=== PATIENT | female | born 1980 | race African-American/Black ===

== ENCOUNTER 2016-10-29 21:10 | Emergency (ER) | payer OTHER, MEDICAID ==
[2016-10-30] MEDS ORDERED: HYDROCODONE/ACETAMINOPHEN 5-325 MG TABLET PO ONE (02:57)
[2016-10-30 03:17] VITALS: BP 133/102
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
== END 2016-10-30 04:36 | disposition home or self-care (01) ==
LOC: ER 21:10
DX: M54.9 Dorsalgia, unspecified (principal); M54.2 Cervicalgia; V49.40XA Driver injured in collision with unspecified motor vehicles in traffic accident, initial encounter; I10 Essential (primary) hypertension; E11.9 Type 2 diabetes mellitus without complications; E66.9 Obesity, unspecified
CPT/HCPCS: 99283